=== PATIENT | male | born 1970 | race Caucasian/White ===

== ENCOUNTER 2017-12-21 19:31 | Emergency (ER) | payer MEDICARE, OTHER ==
[~2017-12-21] VITALS: Ht 172.7 cm; Wt 72.6 kg
[~2017-12-21 19:31] MED LIST: ACYC400 PO; BENZ1 PO; CLIN300 PO; CLOM50A PO; DOXY100 PO; HALO2 PO; HYDACE5 PO; HYDPAM25 PO; IBUP400 PO; ISODICACE; LORA1 PO; LORA2 PO; NAPR375 PO; NAPR550 PO; NORT10; PROM25 PO; QUET25; RISP2 PO; RXCLIN PO; RXNAPNA550 PO; RXPROACE PO
[2017-12-21] MEDS ORDERED: VALA500 PO (21:05)
== END 2017-12-21 21:12 | disposition home or self-care (01) ==
LOC: ER 19:31
DX: B00.1 Herpesviral vesicular dermatitis (principal); Z88.0 Allergy status to penicillin; Z88.8 Allergy status to other drugs, medicaments and biological substances; Z88.2 Allergy status to sulfonamides; F17.200 Nicotine dependence, unspecified, uncomplicated; F20.9 Schizophrenia, unspecified
CPT/HCPCS: 99282

== ENCOUNTER → 2018-06-30 | Outpatient (CLI) | payer MEDICARE, OTHER ==
[~2018-06-30] MED LIST changes: +VALA500 PO
[2018-06-30 16:27] LABS: BASOPHILS PERCENT AUTO 1 % (0-2); EOSINOPHILS ABSOLUTE AUTO 0.54 K/mm3 (0.00-0.68); EOSINOPHILS PERCENT AUTO 7 % (0-6); Hematocrit 43.5 % (37.0-53.0); Hemoglobin 15.1 g/dL (13.5-17.5); IMMATURE GRAN ABSOLUTE AUTO 0.02 K/mm3 (0.00-0.10); IMMATURE GRAN PERCENT AUTO 0 % (0-1); LYMPHOCYTES ABSOLUTE AUTO 2.92 K/mm3 (0.84-5.20); LYMPHOCYTES PERCENT AUTO 38 % (21-46); MONOCYTES ABSOLUTE AUTO 0.73 K/mm3 (0.16-1.47); MONOCYTES PERCENT AUTO 10 % (4-13); Mean Corpuscular HGB 29.2 pg (26.0-34.0); Mean Corpuscular HGB Conc 34.7 g/dL (31.5-36.5); Mean Corpuscular Volume 84 fL (80-100); Mean Platelet Volume 11.4 fL (9.1-12.4); NEUTROPHILS ABSOLUTE AUTO 3.35 K/mm3 (1.96-9.15); NEUTROPHILS PERCENT AUTO 44 % (41-73); Platelet Count 271 K/mm3 (150-400); RDW Coefficient Variation 12.4 % (11.7-14.2); RDW Standard Deviation 37.8 fL (35.1-46.3); Red Blood Cell Count 5.18 M/mm3 (4.30-5.90); White Blood Cell Count 7.66 K/mm3 (4.00-11.30)
[2018-06-30 16:30] LABS: Alanine Aminotransfer (ALT/SGP 20 U/L (12-78); Albumin, Blood 4.2 g/dL (3.4-5.0); Albumin/Globulin Ratio 1.4 (0.8-1.8); Alk Phos 62 U/L (40-126); Anion Gap 11 mmol/L (6-16); Aspartate Aminotrans (AST/SGOT 18 U/L (12-37); Bilirubin, Total 0.4 mg/dL (0.1-1.0); Blood Urea Nitrogen 15 mg/dL (8-24); Bun/Creatinine Ratio 12.9 (12.0-20.0); CO2, Blood 26 mmol/L (21-32); Calcium, Blood 9.7 mg/dL (8.5-10.1); Chloride, Blood 105 mmol/L (98-108); Creatinine, Blood 1.16 mg/dL (0.60-1.20); Globulin, Blood 3.1 g/dL (2.2-4.0); Glomerular Filtration Rate >60 (60-); Glucose, Blood 108 mg/dL (70-99); Potassium, Blood 4.1 mmol/L (3.5-5.5); Sodium, Blood 142 mmol/L (136-145); Total Protein, Blood 7.3 g/dL (6.4-8.2)
[2018-07-02 02:17] LABS: HBSAG SCREEN Negative (Negative); HEP A AB, IGM Negative (Negative); HEP B CORE AB, IGM Negative (Negative); HEP C VIRUS AB <0.1 (0.0-0.9); HIV SCREEN 4TH GENERATION WRFX Non Reactive (Non Reactive)
== END | disposition home or self-care (01) ==
LOC: LAB SHORT 15:54 → LAB EV 15:54
PROVIDERS: Physician Assistant
DX: R10.9 Unspecified abdominal pain (principal); Z72.51 High risk heterosexual behavior
CPT/HCPCS: 80053; 85025; 86592

== ENCOUNTER 2018-09-02 16:42 | Emergency (ER) | payer MEDICARE, OTHER ==
[~2018-09-02] VITALS: Ht 172.7 cm; Wt 68.0 kg
== END 2018-09-02 17:15 | disposition home or self-care (01) ==
LOC: ER 16:42
DX: F20.0 Paranoid schizophrenia (principal); F17.210 Nicotine dependence, cigarettes, uncomplicated; Z88.0 Allergy status to penicillin; Z88.6 Allergy status to analgesic agent; Z88.2 Allergy status to sulfonamides
CPT/HCPCS: 99282

== ENCOUNTER 2018-09-08 10:53 | Emergency (ER) | payer MEDICARE, OTHER ==
[~2018-09-08] VITALS: Ht 172.7 cm; Wt 65.8 kg
== END 2018-09-08 11:35 | disposition home or self-care (01) ==
LOC: ER 10:53
DX: J33.9 Nasal polyp, unspecified (principal); Z88.0 Allergy status to penicillin; Z88.8 Allergy status to other drugs, medicaments and biological substances; Z88.2 Allergy status to sulfonamides; F20.9 Schizophrenia, unspecified; F17.210 Nicotine dependence, cigarettes, uncomplicated
CPT/HCPCS: 99282

== ENCOUNTER 2019-07-07 15:51 | Inpatient (IN) | payer MEDICARE, OTHER ==
[~2019-07-07] VITALS: Ht 172.7 cm; Wt 66.7 kg
[2019-07-07 16:26] LABS: Hematocrit 39.1 % (37.0-53.0); Hemoglobin 12.6 g/dL (13.5-17.5); Mean Corpuscular HGB 34.1 pg (26.0-34.0); Mean Corpuscular HGB Conc 32.2 g/dL (31.5-36.5); Mean Corpuscular Volume 106 fL (80-100); Mean Platelet Volume 10.4 fL (9.1-12.4); NRBC ABSOLUTE 0.05 K/mm3 (0.00-0.02); NRBC Auto 0.7 /100 WBC (0.0-0.2); Platelet Count 314 K/mm3 (150-400); RDW Coefficient Variation 14.4 % (11.7-14.2); Red Blood Cell Count 3.69 M/mm3 (4.30-5.90); White Blood Cell Count 7.17 K/mm3 (4.00-11.30)
[2019-07-07 16:34] LABS: PCO2 Arterial 35.8 mmHg (35-45); PO2 Arterial 306 mmHg (80-100); pH Blood Arterial 7.46 (7.35-7.45)
[2019-07-07 16:42] LABS: BASOPHILS ABSOLUTE MAN 0.14 K/mm3 (0.00-0.23); BASOPHILS PERCENT MAN 2 % (0-2); EOSINOPHILS ABSOLUTE MAN 0.28 K/mm3 (0.00-0.68); EOSINOPHILS PERCENT MAN 4 % (0-6); LYMPHOCYTES ABSOLUTE MAN 2.07 K/mm3 (0.84-5.20); LYMPHOCYTES PERCENT MAN 29 % (21-46); MONOCYTES ABSOLUTE MAN 0.14 K/mm3 (0.16-1.47); MONOCYTES PERCENT MAN 2 % (4-13); NEUTROPHILS ABSOLUTE MAN 4.51 K/mm3 (1.96-9.15); SEG NEUTROPHILS PERCENT MAN 63 % (41-73); TOTAL CELLS COUNTED 100
[2019-07-07 16:47] LABS: Alanine Aminotransfer (ALT/SGP 25 U/L (12-78); Albumin, Blood 4.2 g/dL (3.4-5.0); Albumin/Globulin Ratio 1.3 (0.8-1.8); Alk Phos 79 U/L (50-136); Anion Gap 7 mmol/L (6-16); Aspartate Aminotrans (AST/SGOT 36 U/L (12-37); Bilirubin, Total 1.3 mg/dL (0.1-1.0); Blood Urea Nitrogen 9 mg/dL (8-24); CO2, Blood 26 mmol/L (21-32); Calcium, Blood 8.9 mg/dL (8.5-10.1); Chloride, Blood 107 mmol/L (98-108); Globulin, Blood 3.2 g/dL (2.2-4.0); Glomerular Filtration Rate >60 (60-); Glucose, Blood 85 mg/dL (70-99); Potassium, Blood 3.2 mmol/L (3.5-5.5); Sodium, Blood 140 mmol/L (136-145); Total Protein, Blood 7.4 g/dL (6.4-8.2); Troponin I <0.015 ng/mL (0.000-0.040)
[2019-07-07 17:01] LABS: CPK Creatine Kinase 326 U/L (39-308); Creatine Kinase MB Index 0.3 (0.0-4.0); Ethanol (Alcohol), Blood, Med <3 mg/dL; Magnesium, Blood 2.1 mg/dL (1.6-2.4)
[2019-07-07 17:58] LABS: Source, Urine Clean Catch
[2019-07-07 18:00] LABS: Bilirubin, Urine Neg (Neg); Blood, Urine 2+ (Neg); Glucose Qualitative, Urine Neg (Neg); Ketones, Urine Neg (Neg); Leukocyte Esterase, Urine 1+ (Neg); Nitrite, Urine Neg (Neg); Protein, Urine Neg (Neg); Urobilinogen, Urine 1+ (Normal)
[2019-07-07 18:10] LABS: Appearance, Urine Clear (Clear)
[2019-07-07 18:11] LABS: Amorphous Heavy (0-Heavy); Bacteria Mod /hpf; Red Blood Cells, Urine 0-2 /hpf (0-2); Squamous Epithelial Cells Rare /hpf (Few); White Blood Cells, Urine 0-2 /hpf (0-5)
[2019-07-07 18:12] LABS: U Amphetamine Screen Not Detected; U Barbituate Screen Not Detected; U Benzodiazapine Screen Not Detected; U Buprenorphine Screen Not Detected; U Cannabinoids Screen Not Detected; U Cocaine Screen Not Detected; U Methadone Screen Not Detected; U Methamphetamine Screen Not Detected; U Opiates Screen Not Detected; U Oxycodone Screen Not Detected; U Phencyclidine Screen Not Detected; U Propoxyphene Screen Not Detected
--- NOTE | 2019-07-07 20:21 | NUR ---
DR. GARRISON NOTIFIED: PT ADMIT TO ROOM ICU 6 FROM ER AT 1915. 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 PT WITH GOOD FAMILY SUPPORT AND ARE CURRENTLY AT BEDSIDE. PT HAS BEEN UP TO BSC X2 SINCE ADMIT WITH MINIMAL ASSIST BUT IS UNSTEADY. PT SATS 88-90% WITH 3L O2. DR. GARRISON GIVEN INFORMATION AND QUESTIONS ANSWERED. DR. GARRISON WITH VERBAL ORDER TO CALL POISON CONTROL FOR FURTHER INPUT.
--- NOTE | 2019-07-07 21:06 | NUR ---
POISON CONTROL NOTIFIED: RECOMMENDATION TO CONTACT TOXICOLOGY. DR. GARRISON CALLED AND WAS UPDATED. POISON CONTROL WITH TOXICOLOGY CALLED BACK AND WAS GIVEN DR. GARRISON'S CONTACT INFORMATION.
--- NOTE | 2019-07-07 21:31 | NUR ---
PER TRIPPER, POISON CONTROL CALLED AND STATED TO REMOVE OXYGEN VIA N/C SINCE READINGS ARE FALSE. OXYGEN REMOVED. DR. GARRISON ON PHONE DURING THIS NOTE AND STATED SHE HAS CONSULTED WITH THE TOXICOLOGY.
[2019-07-07 21:37] LABS: PCO2 Arterial 35.5 mmHg (35-45); pH Blood Arterial 7.46 (7.35-7.45)
--- NOTE | 2019-07-07 21:59 | NUR ---
METHEMOGLOBIN 20.3 PER YELENA RT. VALUE GIVEN TO DR. GARRISON WHO GAVE VERBAL TO ADMINISTER CIMETIDINE 800mg PO X1 NOW. AND WILL BE PLACING AND ORDER FOR A "NOW" DOSE OF METHYLENE BLUE 70 mg IV NOW. WILL ADMINSITER PER ORDER AND CONTINUE TO MONITOR.
--- NOTE | 2019-07-08 00:21 | NUR ---
UPDATE: PT C/O NAUSEA AFTER METHYLINE BLUE ADMIN. PT WITH DRY-HEAVING AND ANXIETY. AIRFIELD MANAGER CALLED DR. GARRISON. NEW ORDER GIVEN FOR ZOFRAN AND ATIVAN. PT WITH RELIEF AFTER ZOFRAN. PT GIVEN ATIVAN 0.5mg IVP AND ASSISTED BACK INTO BED. PT FELL ASLEEP BECAME MORE BRADYCARDIC WITH HR DOWN TO 42. AIRFIELD MANAGER CALLED DR. GARRISON WHILE THIS RN ASSESSED PT. NEW ORDER FOR EKG AND TROPONIN NOW ORDRED AND DONE. PT ASYMPTOMATIC BUT SLEEPY AFTER ATIVAN ADMIN. WILL CONTINUE TO MONITOR.
--- NOTE | 2019-07-08 01:05 | NUR ---
EKG WITH NO CHANGES FROM ER EKG. TROPONIN WNL. CURRENT HR 50'S-60'S. SATS 90-92% ON RA. WILL CONTINUE TO MONITOR.
[2019-07-08 01:09] LABS: PCO2 Arterial 39.4 mmHg (35-45); PO2 Arterial 89.6 mmHg (80-100); pH Blood Arterial 7.41 (7.35-7.45)
--- NOTE | 2019-07-08 01:41 | NUR ---
PT STATES IS FEELING BETTER. PT USED CALL LIGHT AND WAS ASSISTED UP TO BSC. PT STATED IS FEELING MUCH BETTER. PT ASSISSTED BACK TO BED. CALL LIGHT WITHIN REACH. FAMILY AT BEDSIDE. WILL CONTINUE TO MONITOR.
--- NOTE | 2019-07-08 02:10 | NUR ---
POISON CONTROL CALLED AND WAS UPDATED. NEW ORDER TO ADD ABG TO AM LABS.
[2019-07-08 05:15] LABS: PCO2 Arterial 39.4 mmHg (35-45); PO2 Arterial 87.8 mmHg (80-100); pH Blood Arterial 7.41 (7.35-7.45)
[2019-07-08 05:28] LABS: BASOPHILS ABSOLUTE AUTO 0.09 K/mm3 (0.00-0.23); BASOPHILS PERCENT AUTO 1 % (0-2); EOSINOPHILS ABSOLUTE AUTO 0.21 K/mm3 (0.00-0.68); EOSINOPHILS PERCENT AUTO 3 % (0-6); Hematocrit 32.9 % (37.0-53.0); Hemoglobin 10.4 g/dL (13.5-17.5); Mean Corpuscular HGB 33.4 pg (26.0-34.0); Mean Corpuscular HGB Conc 31.6 g/dL (31.5-36.5); Mean Corpuscular Volume 106 fL (80-100); Mean Platelet Volume 10.4 fL (9.1-12.4); NRBC ABSOLUTE 0.03 K/mm3 (0.00-0.02); NRBC Auto 0.4 /100 WBC (0.0-0.2); Platelet Count 285 K/mm3 (150-400); RDW Coefficient Variation 14.3 % (11.7-14.2); RDW Standard Deviation 55.8 fL (35.1-46.3); Red Blood Cell Count 3.11 M/mm3 (4.30-5.90); White Blood Cell Count 6.76 K/mm3 (4.00-11.30)
[2019-07-08 05:30] LABS: IMMATURE GRAN ABSOLUTE AUTO 0.02 K/mm3 (0.00-0.10); IMMATURE GRAN PERCENT AUTO 0 % (0-1); LYMPHOCYTES ABSOLUTE AUTO 2.03 K/mm3 (0.84-5.20); LYMPHOCYTES PERCENT AUTO 30 % (21-46); MONOCYTES ABSOLUTE AUTO 0.66 K/mm3 (0.16-1.47); MONOCYTES PERCENT AUTO 10 % (4-13); NEUTROPHILS ABSOLUTE AUTO 3.75 K/mm3 (1.96-9.15); NEUTROPHILS PERCENT AUTO 56 % (41-73)
[2019-07-08 05:42] LABS: Anion Gap 7 mmol/L (6-16); Blood Urea Nitrogen 6 mg/dL (8-24); CO2, Blood 26 mmol/L (21-32); Calcium, Blood 8.1 mg/dL (8.5-10.1); Chloride, Blood 108 mmol/L (98-108); Creatinine, Blood 0.85 mg/dL (0.60-1.20); Glomerular Filtration Rate >60 (60-); Glucose, Blood 82 mg/dL (70-99); Sodium, Blood 141 mmol/L (136-145)
--- NOTE | 2019-07-08 06:16 | NUR ---
CALL TO POISON CONTROL TO UPDATE AND CONFIRM ADMINISTRATION OF METHYLINE BLUE (THIRD DOSE IN 24 HOURS). IT WAS RECOMMENDED TO GIVE THIS THIRD DOSE. CALL TO [facility] IN PHARMACY TO RELAY INFORMATION. THIRD DOSE OF METHYLINE BLUE ORDERED PER DR. GARRISON TELEPHONE ORDER.
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
--- NOTE | 2019-07-08 09:12 | NUR ---
LE VENOUS DOPPLER COMPLETED, POSITIVE FOR LEFT SIDED DVT PER BEDSIDE REPORT. DR. GARRISON NOTIFIED.
--- NOTE | 2019-07-08 09:24 | NUR ---
UPDATED POISON CONTROL ON PT STATUS AND PLAN OF CARE, NO NEW RECOMMENDATIONS.
[2019-07-08 10:57] LABS: PCO2 Arterial 39.2 mmHg (35-45); PO2 Arterial 82.5 mmHg (80-100); pH Blood Arterial 7.43 (7.35-7.45)
[2019-07-08 11:21] LABS: Base Excess Venous 2.2 mmol/L; Bicarbonate Venous 25.9 mmol/L (24.0-30.0); PCO2 Venous 43.6 mmHg (38-42)
--- NOTE | 2019-07-08 11:39 | NUR ---
US COMPLETED, AWARE OF RESULTS, NEW ORDERS. XARELTO ADMINISTERED, ABG DRAWN, COMPARISON VBG DRAWN PER DR. GARRISON. PT RESTING IN BED, VS REMAIN STABLE, PT VOIDING WITHOUT DIFFICULTY, URINE REMAINS GREEN. PT DENIES SOB, COLOR REMAINS DAVID/BLUE, SPO2 >90% PER ABG. PT DENIES NEEDS, FAMILY AT BEDSIDE. NO ANXIETY OR RESTLESSNESS NOTED.
--- NOTE | 2019-07-08 14:17 | NUR ---
PT RESTING IN BED WITH EYES CLOSED AT THIS TIME, VSS, SKIN COLOR SEEMS TO BE IMPROVING BUT REMAINS PALE AND BLUE TINGED. PT C/O HEADACHE OFF AND ON T/O SHIFT, TYLENOL ORDER RECIEVED, WILL MEDICATE INDICATED. PT SPITTING CLEAR SALIVA IN KIDNEY BASIN AT BEDSIDE, NO SPUTUM NOTED, PT STATES HE HAS SPIT AT THE BACK OF HIS THROAT, DENIES DIFFICULTY SWALLOWING, IS UNCLEAR TO REASON FOR SPITTING. NO COUGH NOTED, LS CLEAR. REMAINS AT BEDSIDE. BAKERY WORKER CONVEYOR LINE ORDERED FOR SISTER'S REPORT OF PT LIVING IN A TENT. POISON CONTROL UPDATED, NO NEW RECOMMENDATIONS.
[2019-07-08 16:10] LABS: Hematocrit 32.9 % (37.0-53.0); Hemoglobin 10.6 g/dL (13.5-17.5)
--- NOTE | 2019-07-08 17:05 | NUR ---
PT UP TO CHAIR, WASHED UP AT BEDSIDE, LINENS CHANGED. LAB RESULTS RECEIVED, CALLED TO DR. GARRISON. NEW ORDERS, METHYLENE BLUE INFUSING. SKIN COLOR REMAINS PALE AND BLUE TINGED, SPO2 READS 85%, HAS BEEN >90% ON TODAY'S ABG'S. PT ASSISTED BACK TO BED FROM CHAIR, DENIES NEEDS OR C/O AT THIS TIME, CONTINUES TO SPIT SALIVA INTO KIDNEY BASIN AT BEDSIDE. IN ROOM.
--- NOTE | 2019-07-08 17:49 | NUR ---
POISON CONTROL UPDATED, ADVISES AGAINST ADMINISTERING A 5TH DOSE OF METHYLENE BLUE UNLESS SYMPTOMS INCREASE OR METHEMOGLOBIN LEVEL INCREASES, WILL NOTIFY DOCTOR OF ADVICE IF ADDITIONAL DOSE OF METHYLENE BLUE IS ORDERED, WILL PASS ON TO NEXT SHIFT WELL. PT SITTING UP IN BED EATING DINNER WITHOUT C/O, HAS DENIED HEADACHE THIS AFTERNOON, MENTAL STATUS UNCHANGED, PT REMAINS ORIENTED X4 AND APPROPRIATE WTIH IRRATIONAL THOUGHT PROCESSES. SPO2 86% PER FINGER PROBE, OTHER VSS. PT VISITING WITH BROTHER AND NEPHEW AT BEDSIDE.
--- NOTE | 2019-07-08 18:34 | NUR ---
PT SITTING IN BED WATCHING TV, TOLERATED DINNER WELL, DENIES C/O AT THIS TIME. VS UNCHANGED, PT DENIES SOB, NO CONFUSION NOTED, PT DENIES NAUSEA AND HEADACHE, VOIDING WITHOUT DIFFICULTY, URINE BLUE AT THIS TIME, CLEAR. BLOOD REMAINED CHOCOLATE BROWN DURING BLOOD DRAWS TODAY. WARM COMPRESS TO RIGHT FA SL FOR SORENESS AFTER METHYLENE BLUE INFUSION, SL FLUSHES WITHOUT DIFFICULTY, NO REDNESS/SWELLING TO SITE. REMAINS AT BEDSIDE, PT DENIES NEEDS. REPORT TO ONCOMING SHIFT.
--- NOTE | 2019-07-08 19:54 | NUR ---
START OF SHIFT: REPORT FROM CY CARLIN. PT JAMAL, BRYANT, FAMILY AT BEDSIDE. PT WITH NO COMPLAINTS AND REQUESTS SNACK. PT IV X2 FLUSHED AND PATENT WITH NO TENDERNESS NOTED AFTER REMOVING HOT PACK FROM RIGHT ARM. LS CLEAR, SKIN WARM AND DRY WITH BLUE HUE. LAST DOSE METHYLINE BLUE GIVEN AT 1656 NOTED. PT WITH NO CONCERNS AT THIS TIME AND SEEMS TO BE ENJOYING VISIT FROM FAMILY (BROTHER). WILL CONTINUE TO MONITOR AND COMMUNICATE WITH POISON CONTROL AND LUMBER SORTER.
--- NOTE | 2019-07-08 22:57 | NUR ---
UPDATE: PT SLEEPING ON AND OFF. VSS. NO CHANGES FROM PREVIOUS ASSESSMENT. REMAINS AT BEDSIDE. PT CONTINUING TO VOID BLUE/GREEN URINE, 200 cc OUT THUS FAR THIS SHIFT. WILL ENCOURAGE PT TO DRINK MORE WATER. CALL LIGHT WITHIN REACH.
--- NOTE | 2019-07-09 01:52 | NUR ---
AWAKENED PT TO TAKE SIPS OF WATER. PT ONLY TOOK A SMALL SIP THEN SPITS IN EMESIS BASIN. PT ASKED WHY HE SPITS ALL THE TIME, PT STATED, "IT'S BECAUSE IT'S BACKED UP". PT ENCOURAGE TO DRINK MORE WATER, PT WAVED HIS ARM GESTURING FOR THE RN TO GO AWAY. VS UNCHANGED FROM ALL PREVIOUS. CALL LIGHT WITHIN REACH. SPOUSE REMAINING AT BEDSIDE.
--- NOTE | 2019-07-09 01:59 | NUR ---
DR. GARRISON: TAGGED EXCEL ANALYST FOR DR. GARRISON AND WAS UPDATED. NEW ORDER TO START NORMAL SALINE AT 100mL/hr.
[2019-07-09 03:41] LABS: Hematocrit 33.6 % (37.0-53.0); Hemoglobin 10.5 g/dL (13.5-17.5)
--- NOTE | 2019-07-09 04:17 | NUR ---
PT AWAKENED EASILY FOR LAB DRAW. PT THEN VOIDED 350cc BLUE/GREEN (BUT FOOT ROENTGENOLOGIST IN COLOR THAN PREVIOUS VOID). PT TOOK SIP OF WATER BUT THEN AGAIN, SPIT. Hgb 10.5, Hct 33.6, Methemoblobin 16.6. VSS.
--- NOTE | 2019-07-09 06:04 | NUR ---
POISON CONTROL: NAYA FROM POISON CONTROL CALLED AND WAS UPDATED. NO ORDERS FROM POISON CONTROL AT THIS TIME.
--- NOTE | 2019-07-09 15:45 | NUR ---
ASSUMED CARE: PT ARRIVED TO THE ICU AT 1500. TRANSFERED TO ICU BED WITH SBA. PT DENIES DIZZYNESS OR LIGHT HEADEDNESS. BLOOD PRESSURE IS NOTED TO BE 118/49. NO ACUTE S/S OF DISTRESS. PT IS A/O X 4 AWAKE AND JOKING WITH STAFF. DR SANCHEZ IN TO SEE PT AND ASSESS. PT HAD BEEN [facility] [place] [facility] [place] HAD A BM PRIOR TO THAT AND BLOOD PRESSURE APPEARS TO BE STABLE. RECEIVED ORDER TO START NS @ 100ML/HR TO ASSIST IN KEEPING THE BLOOD PRESSURE GOING IN THE RIGHT DIRECTION. RECEIVED ORDERS IF PRESSURES ARE STABLE AFTER A COUPLE HOURS THEN PT CAN BE TRANSFERED TO PCU, ALSO TO PLACE PICC LINE IF NEEDED FOR IV ACCESS OF PRESSORS NEEDED.
[2019-07-09 16:06] LABS: Hematocrit 33.8 % (37.0-53.0); Hemoglobin 10.8 g/dL (13.5-17.5)
--- NOTE | 2019-07-09 16:30 | NUR ---
INCREASED METHEMOGLOBIN: DR GARRISON NOTIFIED OF METHEMOGLOBIN INCREASING TO 22.9 WITH DRAW AT 1600. NEW ORDERS WERE PLACED FOR MEHYLENE BLUE REVIEWED NOC RN REPORT OF POISON CONTROL RECOMENDING NOT MORE THAN DOSES OF THE MEHYLENE BLUE. RECEIVED AN ORDER TO CALL POISON CONTROL TO [facility].
--- NOTE | 2019-07-09 17:00 | NUR ---
POISON CONTROL: TALKED TO POISON CONTROL REGURDING INCREASED METHEMAGLOBAN AND ORDER FOR METHLENE BLUE. POISON CONTROL REVIEWED CHART AND NEW LAB RESULTS WITH THE POISON CONTROL DOCTOR. SUGGESTED IF PT IS NOT SYMPTOMATIC METHLENE BLUE COULD BE HELD. ALSO RECOMENDED VBG & CBC OR H&H Q8-12 HOURS IF METHEMAGLOBAN INCREASES OR PT BECOMES SYMPTOMATIC THEN ANOTHER DOSE OF METHLENE BLUE SHOULD BE ADMINISTERED. DR GARRISON NOTIFIED OF SUGGESTIONS AND RECEIVED ORDERS: HOLD METHLENE BLUE AT THIS TIME. RECHECK METHEMAGLOBAN @ 0400 IF LEVEL IS >22.9 RUN METHLENE BLUE AND IF METHEMAGLOBAN IS 22.9 OR LESS THEN TO HOLD METHLENE BLUE.
--- NOTE | 2019-07-09 19:27 | NUR ---
SHIFT SUMMARY: NO ACUTE CHANGES NOTED T/O THE DAY. PT LAYED IN BED T/O THE DAY VISITING WITH FAMILY. PT URINE APPEARD TO BE COME LESS AND LESS BLUE T/O THE DAY TURNING TO A DARK GREEN AND ENDING WITH A HIT OF GREEN. PT DENIED PAIN T/O THE DAY. PT WAS ABLE TO STAND AND WALK TO THE SHOWER >50 FEET /C A FWW. RESPRATORY PABLO AN ABG AND FOUND THE METEHEMAGLOBAN INCREASED. DR GARRISON AWARE. BED IN LOWEST POSSITION AND CALL LIGHT WITHIN REACH. REPORT GIVEN TO ONCOMING RN.
--- NOTE | 2019-07-10 02:49 | NUR ---
POISON CONTROL: CALLED AND WAS UPDATED. WILL CALL BACK IN A.M. FOR UPDATE RE: UPCOMING LABS.
[2019-07-10 03:48] LABS: BASOPHILS ABSOLUTE AUTO 0.06 K/mm3 (0.00-0.23); BASOPHILS PERCENT AUTO 1 % (0-2); EOSINOPHILS ABSOLUTE AUTO 0.47 K/mm3 (0.00-0.68); EOSINOPHILS PERCENT AUTO 8 % (0-6); Hematocrit 33.4 % (37.0-53.0); Hemoglobin 10.5 g/dL (13.5-17.5); IMMATURE GRAN ABSOLUTE AUTO 0.03 K/mm3 (0.00-0.10); IMMATURE GRAN PERCENT AUTO 1 % (0-1); LYMPHOCYTES ABSOLUTE AUTO 1.85 K/mm3 (0.84-5.20); LYMPHOCYTES PERCENT AUTO 31 % (21-46); MONOCYTES ABSOLUTE AUTO 0.28 K/mm3 (0.16-1.47); MONOCYTES PERCENT AUTO 5 % (4-13); Mean Corpuscular HGB 33.5 pg (26.0-34.0); Mean Corpuscular HGB Conc 31.4 g/dL (31.5-36.5); Mean Corpuscular Volume 107 fL (80-100); Mean Platelet Volume 10.4 fL (9.1-12.4); NEUTROPHILS ABSOLUTE AUTO 3.37 K/mm3 (1.96-9.15); NEUTROPHILS PERCENT AUTO 56 % (41-73); NRBC ABSOLUTE 0.23 K/mm3 (0.00-0.02); NRBC Auto 3.8 /100 WBC (0.0-0.2); Platelet Count 287 K/mm3 (150-400); RDW Coefficient Variation 14.8 % (11.7-14.2); RDW Standard Deviation 58.3 fL (35.1-46.3); Red Blood Cell Count 3.13 M/mm3 (4.30-5.90); White Blood Cell Count 6.06 K/mm3 (4.00-11.30)
--- NOTE | 2019-07-10 03:54 | NUR ---
PT AWAKENS EASILY TO RN AND VICE PRESIDENT CORPORATE COMMUNICATIONS TO BEDSIDE. PT STATED HEADACHE IS GONE. VSS. ASSESSMENT UNCHANGED FROM PREVIOUS. CALL LIGHT WITHIN REACH.
[2019-07-10 04:06] LABS: Anion Gap 5 mmol/L (6-16); Blood Urea Nitrogen 16 mg/dL (8-24); Bun/Creatinine Ratio 15.5 (12.0-20.0); CO2, Blood 29 mmol/L (21-32); Chloride, Blood 109 mmol/L (98-108); Creatinine, Blood 1.03 mg/dL (0.60-1.20); Glomerular Filtration Rate >60 (60-); Glucose, Blood 99 mg/dL (70-99); Potassium, Blood 3.8 mmol/L (3.5-5.5); Sodium, Blood 143 mmol/L (136-145)
--- NOTE | 2019-07-10 07:30 | NUR ---
ASSUMED CARE OF PATIENT; SEE ASSESSMENT CHARTING FOR DETAILS. PATIENT AWAKE; SPOUSE AT BEDSIDE. DENIES ACUTE C/O. COLOR SOMEWHAT PASTY/DAVID; STATES HE IS FEELING BETTER. LUNGS CLEAR; BIOX. NOT CHECKED D/T INACCURATE READINGS. VSS AND AFEBRILE. PCU STATUS; MONITOR REMAINS SBRADY.
--- NOTE | 2019-07-10 09:30 | NUR ---
T/C FROM POISON CONTROL; RN UPDATED ON LABS AND OVERALL STATUS. POISON CONTROL WANTS METHEHEMOGLOBIN CHECKED Q 8 HRS; RN DISCUSSED IF LEVELS CONT. TO DROP OVER THE NEXT 24 HOURS IF PATIENT COULD BE DISCHARGED HOME AND DRAW DAILY LAB AN OUTPATIENT TIL READINGS WNL. REPLY WAS THAT WE COULD DID THAT IF WE FELT OKAY ABOUT IT. RN WILL INFORM PHYSICIAN RE: CONVERSATION/POC.
--- NOTE | 2019-07-10 10:20 | NUR ---
DR. MENDOZA HERE TO EVAL. PATIENT; RN UPDATED RE: POC/ORDERS FROM POISON CONTROL. HE WILL PLACE Q 8 HOUR METHYLHEMOGLOBIN AND EVAL. TOMORROW IF POSSIBLE D/C AND DRAW LABS DAILY OUTPATIENT. SEE FURTHER ORDERS.
--- NOTE | 2019-07-10 11:40 | NUR ---
DR. LARSON HERE; SEE PROGRESS NOTE.
--- NOTE | 2019-07-10 11:45 | NUR ---
Chely. PABLO SPECIMEN FOR METHYLHEMOGLOBIN ETC.
--- NOTE | 2019-07-10 12:15 | NUR ---
LAB RESULTS BACK; METHHEMOGLOBIN 21.3; PREVIOUS READING 21.9. TO BE RECHECKED AT 8PM.
--- NOTE | 2019-07-10 16:00 | NUR ---
SHOWERED; AMBULATED TO SHOWER WITH SBA. GAIT SL. OFF BUT FAMILY STATES IT IS MUCH IMPROVED FROM THE LAST MONTH. NO ACUTE C/O. COLOR REMAINS GRAYISH/PALE.
--- NOTE | 2019-07-10 18:29 | NUR ---
SUMMARY: NO ACUTE CHANGES; VSS AND LUNGS CLEAR. REMAINS PCU STATUS BUT NO ROOMS AVAILABLE. HAD LARGE STOOL, ON TOILET; VARIED SIZES OF HARD FAZAL/ROCKS. VOIDING MOD. AMOUNTS OF DARK BLUISH/GREEN URINE (IN URINAL). REPEAT LABS TO BE DRAWN AT 8PM; IF READING FOR METHOGLOBIN INCREASED OR HASN'T DROPPED, AT ALL, DR. MENDOZA WANTS TO BE NOTIFIED AND HE WILL ORDER MORE METHYLENE BLUE. WILL REPORT TO ONCOMING RN.
--- NOTE | 2019-07-10 20:00 | NUR ---
RECEIVED HAND OFF FROM Jordan ALBRECHT RN USING SBAR. LYING IN SEMI FOWLERS WITH SPOUSE AT BEDSIDE WATCHING TV. AAO X3, [place], FOLLOWS ALL COMMANDS. REORINETED TO ROOM, CALL SYSTEM, AND POC, VOICES UNDERSTANDING. NEUROLOGICALLY AND NEUROVASCULLARLY INTACT. MCDONALD/BLUE TINT OTED TO LIPS, SKIN IS PALE/MCDONALD IN COLOR, W/D/I. C/O NUMBNESS TO FEET BILATERALLY. RESPIRATIONS EVEN AND UNLABORED ON ROOM AIR. LUNG SOUNDS CLEAR BILATERALLY. ABDOMEN SOFT AND NONDISTENDED. BOWEL SOUNDS PRESENT IN ALL QUADS. HAD HARD FORMED BM DURING DAY SHIFT TODAY. CONTINENT OF BOWEL AND BLADDER, USES URINAL AND COMMODE. LEFT WRIST AND RIGHT FA SL PIV'S ARE PATENT, EACH FLUSHING WITH EASE. DENIES PAIN, DISCOMFORT, OR FURTHER NEEDS AT THIS TIME. SHIFT ASSESSMENT IN PROGRESS. SAFETY MEASURES IN PLACE. WILL CONTINUE TO MONITOR.
--- NOTE | 2019-07-10 21:01 | NUR ---
RESULTS OF HEMOGLOBIN DERIVATIVES TESTING CALLED TO DR. MENDOZA, NO NEW ORDERS AT THIS TIME. SAFETY MEASURES IN PLACE. WILL CONTINUE TO MONITOR.
--- NOTE | 2019-07-10 21:19 | NUR ---
UPDATE GIVEN TO POISON CONTROL. WILL CONTINUE TO MONITOR.
--- NOTE | 2019-07-10 22:00 | NUR ---
250ML BLUE/GREEN TINTED URINE EMPTIED FROM URINAL. LIGHTS DIMMED PT IS READY FOR BED. SPOUSE ASKED THAT WE KEEP THE LIGHT ON A LITTLE BIT SINCE SHE IS SENSITIVE TO THE LIGHT ON THE TV. DENIES FURTHER NEEDS OR WANTS AT THIS TIME. SAFETY MEASURES IN PLACE. WILL CONTINUE TO MONITOR.
[2019-07-11 05:07] LABS: BASOPHILS ABSOLUTE AUTO 0.09 K/mm3 (0.00-0.23); BASOPHILS PERCENT AUTO 1 % (0-2); EOSINOPHILS ABSOLUTE AUTO 0.57 K/mm3 (0.00-0.68); EOSINOPHILS PERCENT AUTO 9 % (0-6); Hematocrit 35.9 % (37.0-53.0); Hemoglobin 11.3 g/dL (13.5-17.5); Mean Corpuscular HGB 33.6 pg (26.0-34.0); Mean Corpuscular HGB Conc 31.5 g/dL (31.5-36.5); Mean Corpuscular Volume 107 fL (80-100); Mean Platelet Volume 10.6 fL (9.1-12.4); NRBC ABSOLUTE 0.06 K/mm3 (0.00-0.02); NRBC Auto 0.9 /100 WBC (0.0-0.2); Platelet Count 290 K/mm3 (150-400); RDW Coefficient Variation 15.5 % (11.7-14.2); RDW Standard Deviation 61.2 fL (35.1-46.3); Red Blood Cell Count 3.36 M/mm3 (4.30-5.90); White Blood Cell Count 6.55 K/mm3 (4.00-11.30)
[2019-07-11 05:27] LABS: Anion Gap 7 mmol/L (6-16); Blood Urea Nitrogen 17 mg/dL (8-24); Bun/Creatinine Ratio 17.4 (12.0-20.0); CO2, Blood 26 mmol/L (21-32); Calcium, Blood 8.5 mg/dL (8.5-10.1); Chloride, Blood 109 mmol/L (98-108); Creatinine, Blood 0.98 mg/dL (0.60-1.20); Glomerular Filtration Rate >60 (60-); Glucose, Blood 90 mg/dL (70-99); Potassium, Blood 4.2 mmol/L (3.5-5.5); Sodium, Blood 142 mmol/L (136-145)
[2019-07-11 05:38] LABS: IMMATURE GRAN ABSOLUTE AUTO 0.01 K/mm3 (0.00-0.10); IMMATURE GRAN PERCENT AUTO 0 % (0-1); LYMPHOCYTES ABSOLUTE AUTO 1.92 K/mm3 (0.84-5.20); LYMPHOCYTES PERCENT AUTO 29 % (21-46); MONOCYTES ABSOLUTE AUTO 0.73 K/mm3 (0.16-1.47); MONOCYTES PERCENT AUTO 11 % (4-13); NEUTROPHILS ABSOLUTE AUTO 3.23 K/mm3 (1.96-9.15); NEUTROPHILS PERCENT AUTO 49 % (41-73)
--- NOTE | 2019-07-11 07:21 | NUR ---
LYING IN SEMI FOWLRES WITH EYES OPEN, SPOUSE LEFT ROOM. HAS SLEPT WELL THIS SHIFT. NO C/O PAIN, DISCOMFORT, OR FUTHER NEEDS AT THIS TIME. SAFETY MEASURES IN PLACE. HAND OFF GIVEN TO RAEGAN DANIELSON USING SBAR.
--- NOTE | 2019-07-11 07:25 | NUR ---
START OF SHIFT NOTE: RECEIVED REPORT FROM RAEGAN PISANO, ASSUMED CARE, PATIENT IS AWAKE, ALERT AND ORIENTED, AT BEDSIDE, PATIENT CONTINUNOUSLY SPITTING UP, VSS, AFEBRILE, DENIES PAIN, LUNG SOUNDS ARE DIMINISHED THROUGHOUT, CALL LIGHT IN REACH, WILL CONTINUE TO MONITOR.
--- NOTE | 2019-07-11 08:30 | NUR ---
PATIENT USED URINAL APPROPRIATELY, URINE IS BLUEISH GREEN TINGED, BUT GOOD OUTPUT, ATE BREAKFAST WITH GOOD APPETITE, CALL LIGHT IN REACH, WILL CONTINUE TO MONITOR.
--- NOTE | 2019-07-11 08:45 | NUR ---
POISON CONTROL ON PHONE, UPDATE PROVIDED.
--- NOTE | 2019-07-11 09:42 | NUR ---
DR. LARSON IN TO SEE PATIENT, DISCHARGED TO HOME.
[2019-07-11] MEDS ORDERED: XARELTO15 MG PO (10:30)
--- NOTE | 2019-07-11 10:53 | NUR ---
CALLED [facility] FOR FOLLOW UP APPOINTMENT, SPOKE WITH MONICA, CANDLE WRAPPING MACHINE OPERATOR, SHE STATED THAT "[facility] WILL CALL PATIENT WITH APPOINTMENT WITHIN ONE WEEK".
--- NOTE | 2019-07-11 11:31 | NUR ---
PATIENT DISCHARGED TO HOME, DISCHARGE DOCUMENTATION WRITTEN AND VERBAL PROVIDED AND EXPLAINED, PATIENT AND VERBALIZED DISCHARGE INSTRUCTIONS, NEW PRESCRIPTION FOR XARELTO 15 MG PO BID WAS FAXED TO [facility] ON [address] PER PATIENT, PIVS REMOVED WITH TIP AND TUBING INTACT, PATIENT TOLERATED WELL, PATIENT LEFT HOSPITAL VIA WHEELCHAIR, THROUGH ER LOBBY WHERE PATIENT AND ARE AWAITING RIDE HOME FROM FAMILY MEMBER.
== END 2019-07-11 11:30 | disposition home or self-care (01) | DRG 917 ==
LOC: ER 15:51 → ICUW 17:27 → ICUE 17:27
PROVIDERS: Emergency Medicine; Internal Medicine Critical Care Medicine; Internal Medicine Pulmonary Disease; Physician Assistant; ADMIT Internal Medicine
DX: T37.1X1A Poisoning by antimycobacterial drugs, accidental (unintentional), initial encounter (principal); J96.01 Acute respiratory failure with hypoxia; D74.8 Other methemoglobinemias; I82.4Z2 Acute embolism and thrombosis of unspecified deep veins of left distal lower extremity; F20.0 Paranoid schizophrenia; R82.3 Hemoglobinuria; Y92.9 Unspecified place or not applicable
CPT/HCPCS: 36415; 36600; 71045; 80048; 80053; 81001; 82375; 82550; 82553; 82803; 83605; 83735; 83880; 84145; 84484; 85014; 85018; 85025; 85379; 86850; 86900; 86901; 87040; 87086; 93005; 93010; 93970; 96361; 96365; 99285-25; A9270; G0480; J1650; J2060; J2405; J7030; J7120; Q9968

== ENCOUNTER 2019-11-15 07:53 | Emergency (ER) | payer MEDICARE, OTHER ==
[~2019-11-15] VITALS: Ht 172.7 cm; Wt 63.5 kg
[~2019-11-15 07:53] MED LIST changes: +XARELTO15 MG PO
== END 2019-11-15 11:06 | disposition home or self-care (01) ==
LOC: ER 07:53
DX: K13.79 Other lesions of oral mucosa (principal); F20.9 Schizophrenia, unspecified; Z88.0 Allergy status to penicillin; Z79.899 Other long term (current) drug therapy; Z87.891 Personal history of nicotine dependence
CPT/HCPCS: 99282

== ENCOUNTER → 2020-01-04 | Outpatient (CLI) | payer MEDICARE, OTHER | END | disposition home or self-care (01) | LOC: LAB 17:55 → LAB SHORT 17:55 | DX: K13.79 Other lesions of oral mucosa (principal) | CPT/HCPCS: 87070; 87205 ==

== ENCOUNTER 2023-11-10 06:05 | Day surgery (SDC) | payer MEDICARE, OTHER ==
[~2023-11-10] VITALS: Ht 172.7 cm; Wt 85.3 kg
[~2023-11-10 06:05] MED LIST changes: +MUCINEX
[2023-11-10 06:38] VITALS: BP 121/79
--- NOTE | 2023-11-10 07:51 | NUR ---
11/10/23 0751 JERRICA SPENCER pt verbalized last eating "eggs and toast" at 0200 am. anesthesia and md consulted and per anesthesia, pt needs to be NPO FOR 8 OURS PRIOR TO SURGERY. DISCUSSION WITH PATIENT WITH THIS RN AND RAEGAN CHAVEZ (CHARGE NURSE). PT EDUCATED ON RISKS OF PROCEEDING WITHOUT 8 HOURS NPO, AND VERBALIZED HIS UNDERSTANDING. HE WAS EDUCATED ON THE OPTIONS OF WAITING UNTIL 1000 AM FOR A LATE START AFTER WHICH HE WOULD BE 8 HOURS NPO OR RESCHEDULING AND AT THIS TIME WOULD LIKE TO RESCHEDULE. PT WAS PROVIDED WITH HIS BELONGINS, INCLUDING A SILVER RING, AND IV WAS DC'D, CATH INTACT. PT ESCORTED TO LOBBY.
== END 2023-11-10 07:45 | disposition home or self-care (01) ==
LOC: ORSCSDS 06:05
DX: J32.4 Chronic pansinusitis (principal); J33.9 Nasal polyp, unspecified; Z53.9 Procedure and treatment not carried out, unspecified reason
CPT/HCPCS: J0171

== ENCOUNTER 2023-12-22 07:30 | Day surgery (SDC) | payer MEDICARE, OTHER ==
[~2023-12-22] VITALS: Ht 172.7 cm; Wt 85.2 kg
[2023-12-22] MEDS ORDERED: EPINEPhrine HCl 1 MG / ML 30ML Vial XX ONE (07:35)
[2023-12-22] MEDS ORDERED: ARIPIPRAZOLE10 M4 PO (08:00)
[2023-12-22] MEDS ORDERED: Lactated Ringer's 1,000 ML IV ONE ×2 (08:10→11:04)
[2023-12-22] MEDS ORDERED: propofoL 40 ML IV ONE (09:20)
[2023-12-22] MEDS ORDERED: FentaNYL Citrate 50 MCG/ML 2 ML Injection ONE ×2 (09:21→10:25)
[2023-12-22] MEDS ORDERED: Midazolam HCl 1MG / ML 2ML Vial ONE (09:30)
[2023-12-22] MEDS ORDERED: EPINEPhrine HCl 1 MG/ML 1ML Amp XX ONE (10:05)
[2023-12-22] MEDS ORDERED: Sodium Chloride 0.9% Inj 10 ML Vial XX ONE (10:05)
[2023-12-22] MEDS ORDERED: Lidocaine 1%-Epineph 1:100000 20 ML MDV XX ONE (10:05)
[2023-12-22] MEDS ORDERED: Ondansetron HCl 2 MG / ML 2ML Vial ONE ×2 (10:09→13:07)
[2023-12-22] MEDS ORDERED: Glycopyrrolate 0.2 MG/ML 5ML VIAL ONE (10:09)
[2023-12-22] MEDS ORDERED: Dexamethasone Sod Phos 10 MG/ML 1ML VIAL ONE (10:09)
[2023-12-22] MEDS ORDERED: Rocuronium Bromide 10 MG/ML 5ML Injection IV ONE ×2 (10:09→10:33)
[2023-12-22] MEDS ORDERED: Metoclopramide HCl 5MG / ML 2ML Vial ONE ×2 (10:09→13:48)
[2023-12-22] MEDS ORDERED: HYDROmorphone HCl/Pf 1MG SYR ONE ×2 (10:43→12:02)
[2023-12-22] MEDS ORDERED: Tranexamic Acid 100 ML IV ONE (12:30)
[2023-12-22] MEDS ORDERED: Sugammadex Sodium 200 MG/2ML SDV (100 MG/ML) ONE (12:35)
--- NOTE | 2023-12-22 17:24 | NUR ---
12/22/23 1724 Castillo Rodney PT INITIALLY REPORTED NEEDING TO URINATE UPON ARRIVAL IN SDU. HE HAD DIFFICULTY VOIDING ON FIRST ATTEMPT, BUT WAS ABLE TO URINATE A SIGNIFICANT AMOUNT OF CLEAR, YELLOW URINE AT 1415. PT REPORTED NAUSEA UPON ARRIVAL IN SDU. HE WAS MEDICATED WITH ZOFRAN AND REGLAN, PER DR. HOLLEY'S ORDERS. PT REPORTED NAUSEA SUBSIDED FOLLOWING MEDICATION. PT REPORTED THAT NAUSEA AND MILD DIZZINESS RETURNED LATER, AFTER TRANSFERING FROM [facility] TO FOR D/C. HOWEVER, HE EXPRESSED READINESS TO RETURN HOME. HE REPORTED MILD, TOLERABLE NOSE AND HEADACHE PAIN UPON D/C. PT WAS UNABLE TO CLEARLY USE PAIN SCALE. FLACC 1-3/10 THROUGHOUT STAY IN SDU. INITIALLY IN SDU, PT'S O2 DIPPED TO 88% FOR BREIF PERIODS WHILE NODDING OFF. PT WAS ABLE TO RETURN O2 TO >94% WITH DEEP BREATHS. PT'S O2 MAINTAINED >94% FOR MORE THAN 40 MINUTES PRIOR TO D/C. DR. HOLLEY CONSULTED AND APPROVED D/C. PT DENIED RESPIRATORY SYMPTOMS INCLUDING SOB, AND NONE WERE OBSERVED. CLEARLY
[2023-12-22 17:26] VITALS: BP 139/88
== END 2023-12-22 15:00 | disposition home or self-care (01) ==
LOC: ORSCSDS 07:30
PROVIDERS: Otolaryngology
PROC: 09DQ4ZZ Extraction of Right Maxillary Sinus, Percutaneous Endoscopic Approach (ICD-10-PCS; principal; 2023-12-22 09:00)
PROC: 09DR4ZZ Extraction of Left Maxillary Sinus, Percutaneous Endoscopic Approach (ICD-10-PCS; principal; 2023-12-22 09:00)
DX: J32.4 Chronic pansinusitis (principal); J33.8 Other polyp of sinus; F20.9 Schizophrenia, unspecified; F41.9 Anxiety disorder, unspecified; F32.A Depression, unspecified; Z79.899 Other long term (current) drug therapy
CPT/HCPCS: 88305; 88311; C2625; J0171; J1100; J1170; J2250; J2405; J2704; J2765; J3010